=== PATIENT | male | born 1950 | race Caucasian/White ===

== ENCOUNTER 2019-06-24 07:21 | Observation (INO) | payer MEDICARE, OTHER ==
--- NOTE | 2019-06-23 17:43 | PREOP HP ---
DATE OF SERVICE: 06/24/2019 HISTORY OF PRESENT ILLNESS: The patient is a pleasant 68-year-old, who underwent surgery for a right-sided disc herniation in 2013 and he did well. In mid April, he developed severe back and left leg pain. The pain is in the left hip and buttock. It radiates into the lateral thigh and now across the knee to the inner thigh and then down to the anterior leg. He said the problem has been severe since 05/11/2019. He has been in the Emergency Room twice. He was admitted to the hospital for pain control. He says his pain score is a 4/10 with medications and 8/10 without medications. The pain is constant. He had epidural steroid injections x 2, which lasted for just a couple of days each. PAST MEDICAL HISTORY: Asthma, gout, hepatitis C, tonsillitis. PAST SURGICAL HISTORY: A knee surgery in 2011, laminectomy in 2013, and tonsillectomy in 2014. SOCIAL HISTORY: He is employed as an [employer]. Exercises daily. Denies current tobacco use. Drinks one alcoholic drink per day. ALLERGIES: CODEINE. CURRENT MEDICATIONS: Dunbar, DOK, ondansetron HCL, tizanidine HCL, Cosentyx, multivitamin, baby aspirin, fish oil, Claritin, magnesium, and Aleve. REVIEW OF SYSTEMS: A 12-point review of systems was obtained and is noncontributory except for that mentioned above. PHYSICAL EXAMINATION: NEUROSURGERY EXAMINATION: GENERAL APPEARANCE: Alert, pleasant, in no acute distress. HEAD: Normocephalic, atraumatic. SKIN: Warm and dry. MUSCULOSKELETAL: Lumbar paraspinal muscle bulk is normal, restricted range of motion of lumbar spine, [id number] tenderness of the lumbar spine with palpation, normal range of motion of the lower extremities bilaterally. EXTREMITIES: No clubbing, cyanosis or edema. NEUROLOGIC: Alert and oriented x 3, normal recent and remote memory, strength 5/5 in bilateral lower extremities. Sensory is intact to light touch in bilateral lower extremities. Reflexes are present and symmetric in lower extremities bilaterally, positive straight leg raising on the left, negative straight leg raising on the right, normal gait. IMAGING DATA: I reviewed a lumbar MRI scan from 05/12/2019. On that study, the principal abnormality is severe left foraminal stenosis present at L4-L5. ASSESSMENT/ PLAN: I would see the problems at L4-L5 on the left are responsible for his severe pain. I have recommended a transforaminal lumbar microdecompression at that level. I spoke about the surgery and the risks and expected postoperative course. I explained that I would not instrument him, but perform a simple micro decompression and see how he does with that first. He understands. He would like to go ahead. We will make the arrangements. HUGO ENRIQUE MD DR: NELI/ashanti JOB#: [id number] / [id number] MATHEW
[~2019-06-24] VITALS: Ht 152.4 cm; Wt 88.9 kg
[2019-06-24] VITALS (10 sets, daily range): BP systolic 119–164; BP diastolic 70–101
[~2019-06-24 07:21] MED LIST changes: +BACITRACIN 50,000 UNIT in IV NORMAL SALINE 1000ML BAG 1,000 ML IRR ONE; +HYDROmorphone 2 MG/ML VIAL IV PRN; +IV RINGERS,LACTATED 1000ML 1,000 ML IV SCH; +LIDOCAINE 1% PF 2 ML VIAL. ID PRN; +MORPHINE SULFATE 2 MG/ML VIAL. IV PRN; +ONDANSETRON PF 4 MG/2 ML VIAL. IV PRN; +PROCHLORPERAZINE 10 MG/2 ML VIAL. IV PRN; +fentaNYL PF VIAL 100 MCG/2 ML VIAL IV PRN
[2019-06-24] MEDS ORDERED: KETOROLAC 60 MG/2 ML VIAL. ONE (07:49)
[2019-06-24] MEDS ORDERED: THROMBIN TOPICAL 20,000 UNIT SPRAY.SYRN KIT TP ONE (07:49)
[2019-06-24] MEDS ORDERED: GELATIN SPONGE SIZE 100. ONE (07:49)
[2019-06-24] MEDS ORDERED: ONDANSETRON PF 4 MG/2 ML VIAL. ONE (07:50)
[2019-06-24] MEDS ORDERED: fentaNYL PF VIAL 100 MCG/2 ML VIAL ONE (07:50)
[2019-06-24] MEDS ORDERED: ROCURONIUM 50 MG/5 ML VIAL. ONE (07:50)
[2019-06-24] MEDS ORDERED: PROPOFOL 20 ML IV ONE (07:50)
[2019-06-24] MEDS ORDERED: MIDAZOLAM HCL/PF 2 MG/2 ML VIAL. ONE (07:50)
[2019-06-24] MEDS ORDERED: FAMOTIDINE 20 MG/2 ML VIAL ONE (07:50)
[2019-06-24] MEDS ORDERED: REMIFENTANIL 2 MG VIAL. IV ONE (07:50)
[2019-06-24] MEDS ORDERED: DEXAMETHASONE SOD PHOS 20 MG/5 ML VIAL. ONE (07:50)
[2019-06-24] MEDS ORDERED: LIDOCAINE 2% PF 5 ML VIAL. ONE (07:50)
[2019-06-24] MEDS ORDERED: 0.9 % SODIUM CHLORIDE 20 ML VIAL. IJ ONE (07:51)
[2019-06-24] MEDS ORDERED: PROPOFOL 50 ML IV ONE ×2 (07:53→10:39)
[2019-06-24] MEDS ORDERED: ceFAZolin 2GM PREMIX 2 GM/50 ML BAG IV ONE (08:00)
[2019-06-24] MEDS ORDERED: BUPIVACAINE-EPI 0.5%-1:200000 MPF 30 ML VIAL. INJ ONE (08:00)
[2019-06-24] MEDS ORDERED: ePHEDrine PF IN SALINE 50 MG/10 ML SYRINGE. IV ONE (09:34)
[2019-06-24] MEDS ORDERED: NEOSTIGMINE METHYLSULFATE 5 MG/5 ML SYRINGE. ONE (10:55)
[2019-06-24] MEDS ORDERED: GLYCOPYRROLATE 1 MG/5 ML VIAL. ONE (10:55)
[2019-06-24] MEDS ORDERED: DESFLURANE > 120 MINUTES IH ONE (10:55)
[2019-06-24] MEDS: POTASSIUM CL 20MEQ D5-0.45NACL 1,000 ML IV SCH (11:38)
[2019-06-24] MEDS ORDERED: diphenhydrAMINE HCL 25 MG CAPSULE PO PRN (11:45)
[2019-06-24] MEDS ORDERED: NALOXONE 0.4 MG/ML VIAL. IV PRN (11:45)
[2019-06-24] MEDS ORDERED: HYDROcodone/APAP 10/325 1 TAB TABLET PO PRN (11:45)
[2019-06-24] MEDS ORDERED: MAGNESIUM HYDROXIDE 2,400 MG/30 ML ORAL.SUSP. PO PRN (11:45)
[2019-06-24] MEDS ORDERED: fentaNYL PF VIAL 100 MCG/2 ML VIAL IVP PRN (11:45)
[2019-06-24] MEDS ORDERED: ACETAMINOPHEN 325 MG TABLET. PO PRN (11:45)
[2019-06-24] MEDS ORDERED: ONDANSETRON PF 4 MG/2 ML VIAL. IV PRN (11:45)
[2019-06-24] MEDS ORDERED: CALCIUM CARBONATE 500 MG TAB.CHEW PO PRN (11:45)
[2019-06-24] MEDS ORDERED: MAG HYDROX/ALUMINUM HYD/SIMETH 30 ML ORAL.SUSP PO PRN (11:45)
[2019-06-24] MEDS ORDERED: 0.9 % SODIUM CHLORIDE 10 ML DISP.SYRIN. IV PRN (11:45)
[2019-06-24] MEDS: NAPROXEN 250 MG TABLET PO SCH ×2 (12:00→20:53)
[2019-06-24] MEDS: ALBUTEROL SULFATE 2.5 MG/3 ML NEBU. NEB SCH ×2 (12:00→18:00)
--- NOTE | 2019-06-24 12:00 | NUR ---
Rec'd from PACU per bed, alert/oriented, lumbar dressing clean dry & intact, states discomfort level 3/10, ice pack added for comfort, bilateral CANDIDO hose & CATRINA in place, IVF infusing into right hand, oriented to surroundings, spouse at bedside, call light in reach
--- NOTE | 2019-06-24 12:15 | OP ---
DATE OF SURGERY: 06/24/2019 PREOPERATIVE DIAGNOSES: Foraminal stenosis, L4-L5 left with left lumbar radiculopathy. POSTOPERATIVE DIAGNOSIS: Foraminal stenosis, L4-L5 left with left lumbar radiculopathy. OPERATION PERFORMED: Hemilaminotomy combined with a transforaminal exposure with microdiscectomy and removal of foraminal disc bulge compressing the left L4 and to a lesser extent L5 nerve roots. The operation was done with multimodality monitoring including EMG, SSEP. Fluoroscopy was used as well as microscopic dissection. SURGEON: Gurinder Enrique M.D. HOTEL RECEPTIONIST: GLORIA Koroma assisted with the surgery. She assisted with the exposure, the microdecompression as well as closure. OPERATIVE INDICATIONS: The patient is a pleasant 68-year-old man who developed intractable back and left leg pain, primarily in L4 distribution. On imaging studies, he was found to have very significant foraminal narrowing on the left at L4-L5, which appeared to be largely justice, but there was a component of disc bulging seen on the imaging. I recommended lumbar microsurgical decompression with a transforaminal exposure to see if this would not give him some relief. I spoke with him about the surgery and the risks, the technique and he wished to go ahead. DESCRIPTION OF PROCEDURE: Following general endotracheal anesthesia, the patient was positioned prone on the Loco table. Lumbar region prepped and draped in the standard fashion. CANDIDO hose and AV impulse boots were applied for DVT prophylaxis. A microscope was draped. Fluoroscopy was draped and brought into the field. Monitoring was established. Ancef 2 grams was given less than 1 hour prior to initiation of the surgery. Using fluoroscopic guidance, a midline incision was made directly over the L4-L5 interspace. I dissected down through skin and subcutaneous tissue, reflected the paraspinal muscles and brought in the microscope and then using the high-speed air drill after confirming my position fluoroscopically, I burred down a generous hemilaminotomy and then trimmed away very thickened ligamentum flavum just above the pedicle. Then, I began to work out through the foramen, removing bone and I worked superiorly until I was able to visualize the L4 root and then followed this laterally. There was a significant focal disc bulging, which was markedly deviating compressing the L4 root and the bulge was large enough that it was also in contact with the L5 root just at its takeoff. I incised the annulus in this location and as I worked performing the discectomy the bulge disappeared. I worked laterally and visualized and followed the L4 root and I ensured myself that it was under no pressure. I worked medially into the disc space and performed a discectomy and I did perform a partial foraminotomy ensuring myself the L5 root was quite free. I irrigated copiously with antibiotic solution at this point and obtained excellent hemostasis. I removed the retractor, obtained hemostasis in the muscle, irrigated further. Then, I closed the wound in layers with absorbable suture. The skin was closed with 4-0 subcuticular stitch. The monitoring was quiet at the end of the operation. There were no untoward events during the surgery and I was quite pleased. GURINDER ENRIQUE MD DR: NELI/ashanti JOB#: [id number] / [id number] MATHEW
[2019-06-24] MEDS ORDERED: DOCUSATE SODIUM 100 MG CAPSULE. PO SCH (13:00)
[2019-06-24] MEDS: BUDESONIDE 0.5 MG/2 ML NEBU. NEB SCH ×2 (13:00→20:00)
[2019-06-24] MEDS: HYDROcodone/APAP 10/325 1 TAB TABLET PO PRN ×2 (13:19→22:58)
[2019-06-24] MEDS: METHOCARBAMOL 750 MG TABLET PO PRN ×2 (14:59→20:52)
[2019-06-24] MEDS: OMEGA-3 FATTY ACIDS/FISH OIL 1,000 MG CAPSULE. PO SCH (15:00)
[2019-06-24] MEDS: MULTIVITAMIN with MINERAL TABLET. PO SCH (15:00)
[2019-06-24] MEDS: DOCUSATE SODIUM 100 MG CAPSULE. PO SCH ×2 (15:00→20:53)
--- NOTE | 2019-06-24 15:10 | NUR ---
C/O bladder feeling full, voided 350cc, PVR >714 cc, straight cath procedure performed, tolerated procedure well, immediate returns of clear yellow urine 1000cc, spouse at beside, encouraged fluid intake
[2019-06-24] MEDS: ONDANSETRON ODT 4 MG TAB.RAPDIS. PO PRN (18:26)
[2019-06-25] MEDS: POTASSIUM CL 20MEQ D5-0.45NACL 1,000 ML IV SCH (00:58)
[2019-06-25 03:00] VITALS: BP 92/54
[2019-06-25] MEDS: ALBUTEROL SULFATE 2.5 MG/3 ML NEBU. NEB SCH ×3 (06:00→10:49)
[2019-06-25 06:51] VITALS: BP 90/58
[2019-06-25] MEDS: DOCUSATE SODIUM 100 MG CAPSULE. PO SCH (07:53)
[2019-06-25] MEDS: MULTIVITAMIN with MINERAL TABLET. PO SCH (07:53)
[2019-06-25] MEDS: OMEGA-3 FATTY ACIDS/FISH OIL 1,000 MG CAPSULE. PO SCH (07:53)
[2019-06-25] MEDS: NAPROXEN 250 MG TABLET PO SCH (07:54)
[2019-06-25] MEDS: METHOCARBAMOL 750 MG TABLET PO PRN (07:54)
[2019-06-25] MEDS: HYDROcodone/APAP 10/325 1 TAB TABLET PO PRN (07:55)
[2019-06-25] MEDS: BUDESONIDE 0.5 MG/2 ML NEBU. NEB SCH (07:55)
[2019-06-25] MEDS: ONDANSETRON ODT 4 MG TAB.RAPDIS. PO PRN (07:57)
[2019-06-25] MEDS ORDERED: ASPIRIN ENTERIC COATED 81 MG TABLET.DR. PO SCH (09:00)
[2019-06-25] MEDS ORDERED: NON FORMULARY ITEM (Umeclidinium Brm/Vilanterol Tr (Anoro Ellipta 62.5-25 Mcg Inh) 1 EACH) IH SCH (09:00)
--- NOTE | 2019-06-25 11:32 | DISCH ---
DISCHARGE INSTRUCTIONS Condition on Discharge Condition on Discharge: Stable Activity After Discharge Activity Instructions for Disc: Activity as tolerated, Progressive ambulation Other activity instructions: no driving for a week Bathing Instructions: No Tub Bath until see Lifting Instructions after Dis: No heavy lifting, No pulling or pushing, Do not lift >10 pounds Exercise Instruction after Dis: Walk 30 min, 5 x per week Driving Instructions after Dis: Do not drive Weight Bearing Status after Di: As tolerated Diet after Discharge Diet after Discharge: Regular Additional Diet Restrictions: resume home diet Liquid Texture: Thin Liquid Wound Incision Care Wound/Incision Care: Ice to area for comfort, Keep wound/cast CDI, Change dressing, May get incision wet Other wound/incision instructi: May shower after 48 hours. Remove dressing and replace if desired. Wound Care Equipment: Dressings Contacting the after DC Call your doctor for: Concerns you may have Follow-Up Follow Up With: Dr Enrique's nurse in 10-14 days [phone] Treatment/Equipment after DC Adaptive Equipment Issued: None HUGO ENRIQUE MD Jun 25, 2019 11:32
--- NOTE | 2019-06-25 12:25 | NUR ---
Patient left the building around 1215 with his . Discharge education completed by this nurse, therapy, and VERONICA Anderson. Dressing to patients lower back was changed with no signs of infection noted. Script given to the patient for norco . Extra dressings given to the patient and the was taught how to change it if he wants to keep it covered. No concerns noted upon discharge. and patient stated understanding of all discharge education.
--- NOTE | 2019-06-25 13:57 | DS ---
DATE OF DISCHARGE: 06/25/2019 DISCHARGE DIAGNOSES: Foraminal stenosis, L4-L5, left with left lumbar radiculopathy. OPERATION PERFORMED: Hemilaminotomy combined with transforaminal exposure with microdiskectomy and removal of foraminal disk bulge compressing the left L4 and left L5 nerve roots. OPERATIVE INDICATIONS: The patient is a pleasant 68-year-old man, who developed intractable back and left leg pain primarily in an L4 distribution. On imaging studies, he was found to have very significant foraminal narrowing on the left at L4-L5, which appeared to be largely bony. There was a component of disk bulging seen on the imaging as well. I recommended lumbar microsurgical decompression to see if this would give him some relief. I spoke with him about the surgery, the risk, and the technique and he wished to go ahead. HOSPITAL COURSE: He was admitted to the floor postoperatively where he did well. He was up ambulating in the room and in the halls. Physical therapy was initiated and instruction was given to him regarding his activities. He notes significant improvement in his left leg pain. He is in good condition to discharge home. Pain is well controlled. DISCHARGE INSTRUCTIONS: He was instructed regarding incision care, activity restrictions, and expectations for the next several weeks. He will follow up in our office in 2 weeks. He understands to call with any questions or concerns. DISCHARGE MEDICATIONS: He will resume his medications per the [facility]AD. HUGO ENRIQUE MD DR: SHILPI/ashanti JOB#: [id number] / [id number]
--- NOTE | 2019-06-25 18:06 | PATHOLOGY ---
[facility] Accession Number: [id number] . 01 Material submitted: . vertebral column - LUMBAR DECOMPRESSION AND DISC . 01 Clinical history: . Lumbar spondylosis with radiculopathy . 02 Diagnosis: Segments of fibrocartilaginous tissue and bone, lumbar decompression and disc: - Degenerative changes of fibrocartilaginous tissue. LBQ 06/25/2019 1530 Local . 02 Comment: There is no evidence of an acute inflammatory process or malignancy. (JPM/db; 06/25/2019) . 02 Electronically signed: . Patric Cabral MD, Pathologist NPI- [id number] . 01 Gross description: . The specimen is received in formalin, labeled "Wilton, Justin, lumbar decompression and disc", are multiple irregular fragments of huertas-yellow and gritty tissue possibly admixed with bone spicule measuring 2.7 x 2.0 x 0.8 cm in aggregate. Representatively submitted in A1, after decalcification. ([facility]; 06/24/2019) [facility] 06/24/2019 1744 Local . 02 Pathologist provided ICD-10: M47.896, M54.16 . 02 CPT . 445398, [id number] Specimen Comment: A courtesy copy of this report has been sent to [phone] Specimen Comment: [id number] Specimen Comment: Report sent to / DR AVERY Performed at: 01 [facility] [address], [place] [id number] MD Fortunato Cha MD Phone: [phone] Performed at: 02 [facility] [address] [place], [place] [id number] MD Patric Cabral MD Phone: [phone]
== END 2019-06-25 12:20 | disposition home or self-care (01) ==
LOC: SURG 07:21 → 4 SOUTHEST 12:11
PROVIDERS: ADMIT Neurological Surgery; ATTEND Neurological Surgery
DX: M48.061 Spinal stenosis, lumbar region without neurogenic claudication (principal); M47.896 Other spondylosis, lumbar region; M54.16 Radiculopathy, lumbar region; J45.909 Unspecified asthma, uncomplicated; M10.9 Gout, unspecified; Z86.19 Personal history of other infectious and parasitic diseases; Z98.890 Other specified postprocedural states
CPT/HCPCS: 63047; 76000; 88304; 88311; 96374; 97116; 97162; 97530; A7015; G0378; G0379; J0171; J0696; J1100; J1885; J2001; J2250; J2405; J2704; J2710; J3010; J3490; J7030; J7120; Q0162; 36415; 80053; 85025; 87641

== ENCOUNTER → 2019-06-24 | Outpatient (CLI) | payer MEDICARE, OTHER ==
[2019-06-18 13:19] VITALS: BP 141/83
[2019-06-23 11:33] LABS: ALBUMIN/GLOBULIN RATIO 1.1 (1.0-1.7); CALCIUM 8.8 mg/dL (8.5-10.1); GFR 74.3; TOTAL BILIRUBIN 0.4 mg/dL (0.2-1.0); TOTAL PROTEIN 7.6 g/dL (6.4-8.2)
[2019-06-23 11:34] LABS: HEMATOCRIT 43.4 % (39.0-53.0); HEMOGLOBIN 14.6 g/dL (13.0-17.5); MEAN CORPUSCULAR HEMOGLOBIN 31 pg (25-35); MEAN CORPUSCULAR HGB CONC 34 g/dL (31-37); MEAN CORPUSCULAR VOLUME 92 fL (79-100); PLATELET COUNT 199 x10^3/uL (140-400); POTASSIUM 4.1 mmol/L (3.5-5.1); RED BLOOD COUNT 4.69 x10^6/uL (4.30-5.70); RED CELL DISTRIBUTION WIDTH 12.6 % (11.5-14.5)
[2019-06-23 11:35] LABS: BASO % 1 % (0-3); EOS # 0.4 x10^3/uL (0.0-0.7); EOS % 6 % (0-3); LYMPH # 2.1 x10^3/uL (1.0-4.8); LYMPH % 35 % (24-48); MONO # 0.6 x10^3/uL (0.0-1.1); MONO % 10 % (0-9); NEUT # 2.9 x10^3/uL (1.8-7.7); NEUT % 49 % (31-73)
[~2019-06-24] MED LIST: ASPI81TA50 PO; DOCU100C28 PO; HYDR-2769 PO; METH-38 PO; MULT-245 PO; NAPR220T70 PO; OMEG-152 PO; ONDA4TAB12 PO; SECU150S2 SQ; UMEC1DIS IH
== END | disposition home or self-care (01) ==
LOC: EDUNIT# 06-18 12:30 → EDSTATUS 06-18 12:30 → SURGPAT 06-18 12:32
PROVIDERS: ATTEND Neurological Surgery
DX: Z01.818 Encounter for other preprocedural examination (principal); M47.26 Other spondylosis with radiculopathy, lumbar region; Z88.5 Allergy status to narcotic agent
CPT/HCPCS: 36415; 80053; 85025; 87641